=== PATIENT | female | born 1945 | race Hispanic/Latino ===

== ENCOUNTER 2017-07-04 10:55 | Outpatient (CLI) | payer MEDICARE ==
--- NOTE | 2017-07-04 13:26 | MMO ---
MAMMOGRAM DIGITAL SCREENING BILATERAL: DATE: 07/04/17. HISTORY: A 71-year-old female for a routine bilateral screening mammogram. COMPARISON: 06/01/16, 05/27/15, and 02/02/14. TECHNIQUE: Digital mammographic views. Computer-aided detection (CAD) utilized. FINDINGS: The breasts are heterogeneously dense, which may obscure small masses. There is no evidence of suspicious mass, suspicious calcifications, or architectural distortion. The re is no significant interval change since the prior mammogram. IMPRESSION: 1) BIRADS 1- Negative. 2) Recommendation: routine bilateral annual screening mammogram (unless the patient develops suspicio us clinical findings that would warrant earlier imaging follow up). BIRADS 1: Negative Routine annual screening mammography (for women over age 40) lina [] POS: [id number]
== END 2017-07-04 10:56 | disposition home or self-care (01) ==
LOC: SCSMAMMO 10:55
PROVIDERS: ATTEND Family Medicine
DX: Z12.31 Encounter for screening mammogram for malignant neoplasm of breast (principal)
CPT/HCPCS: 77067

== ENCOUNTER 2019-03-06 12:32 | Outpatient (CLI) | payer MEDICARE ==
--- NOTE | 2019-03-06 12:53 | RAD ---
XR Knee Rt 3 View HISTORY: Right knee pain. COMPARISON: None. FINDINGS: There are mild to moderate arthritic changes of the knee. These changes are related to the medial compartment and patellofemoral compartments. A small joint effusion is present. The bones appear demineralized. IMPRESSION: Moderate arthritic changes of the knee.
== END 2019-03-06 12:33 | disposition home or self-care (01) ==
LOC: SCSRAD 12:32
PROVIDERS: ATTEND Physician Assistant Medical
DX: M25.561 Pain in right knee (principal); M17.11 Unilateral primary osteoarthritis, right knee

== ENCOUNTER 2020-04-14 08:28 | Outpatient (CLI) | payer MEDICARE ==
--- NOTE | 2020-04-14 08:53 | RAD ---
EXAM: Calcaneus: 2 views INDICATIONS: Heel pain and swelling COMPARISON: None. FINDINGS: There are enthesophytes from the plantar calcaneus and posterior calcaneus. The plantar ent hesophyte measures 1.0 cm. No other osseous abnormality identified. IMPRESSION: Plantar and posterior enthesophytes.
== END 2020-04-14 08:29 | disposition home or self-care (01) ==
LOC: SCSRAD 08:28
PROVIDERS: ATTEND Family Medicine
DX: M79.671 Pain in right foot (principal); M77.51 Other enthesopathy of right foot and ankle

== ENCOUNTER 2020-08-17 11:28 | Outpatient (CLI) | payer MEDICARE | END 2020-08-17 11:29 | disposition home or self-care (01) | LOC: SCSRAD 11:28 | PROVIDERS: ATTEND Family Medicine | DX: M25.561 Pain in right knee (principal); M25.551 Pain in right hip ==

== ENCOUNTER 2024-09-02 11:30 | Outpatient (CLI) | payer MEDICARE | END 2024-09-02 11:31 | disposition home or self-care (01) | LOC: SCSMRI 11:30 | PROVIDERS: ATTEND Family Medicine | DX: M51.16 Intervertebral disc disorders with radiculopathy, lumbar region (principal); M47.816 Spondylosis without myelopathy or radiculopathy, lumbar region; M51.379 Other intervertebral disc degeneration, lumbosacral region without mention of lumbar back pain or lower extremity pain; M47.817 Spondylosis without myelopathy or radiculopathy, lumbosacral region; M48.061 Spinal stenosis, lumbar region without neurogenic claudication; M48.07 Spinal stenosis, lumbosacral region | CPT/HCPCS: 72148 ==